=== PATIENT | male | born 1970 | race Caucasian/White ===

== ENCOUNTER 2018-10-10 08:58 | Emergency (ER) | payer OTHER ==
[~2018-10-10] VITALS: Ht 180.3 cm; Wt 82.1 kg
[2018-10-10 09:15] VITALS: Ht 180.3 cm; Wt 82.1 kg
[2018-10-10 09:57] LABS: BASOPHIL % 0.2 % (0-2); PLATELET COUNT 232 x10^3mcL (130-400); RED CELL DISTRIBUTION WIDTH 13.4 % (11.5-14.5)
[2018-10-10 10:15] LABS: CALCIUM 8.2 mg/dL (8.5-10.1); CARBON DIOXIDE 27.5 mmol/L (21-32); CHLORIDE SERUM 104 mmol/L (98-107); CREATININE SERUM 0.9 mg/dL (0.7-1.3); GFR1 > 60 mL/min; GLUCOSE SERUM 88 mg/dL (74-106); SODIUM SERUM 140 mmol/L (136-145)
[2018-10-10 10:19] LABS: ALBUMIN 4.1 g/dL (3.4-5.0); ALKALINE PHOSPHATASE 60 U/L (46-116); ALT/SGPT 18 U/L (16-63); AST/SGOT 13 U/L (15-37); BILIRUBIN TOTAL 0.2 mg/dL (0.20-1.00); CHOLESTEROL 184 mg/dL (<200); HDL CHOLESTEROL 59 mg/dL (40-60); TOTAL PROTEIN, SERUM 7.6 g/dL (6.4-8.2)
[2018-10-10 11:54] VITALS: BP 123/80
== END 2018-10-10 12:45 | disposition home or self-care (01) ==
LOC: ED 08:58
PROVIDERS: Emergency Medicine
DX: R53.1 Weakness (principal); R51 Headache; R41.82 Altered mental status, unspecified
CPT/HCPCS: 36415; 82962; Q0092